=== PATIENT | female | born 1970 | race Caucasian/White ===

== ENCOUNTER 2019-10-19 11:55 | Emergency (ER) | payer MEDICARE ==
[~2019-10-19] VITALS: Ht 165.1 cm; Wt 93.6 kg
[~2019-10-19 11:55] MED LIST: FLEXERIL 1010 MG/TAB PO; NORCO 325 MG-51 TAB PO; OXYTOCIN IJ; PREDNISONE20 MG PO; [UNRECOGNIZED DRUG - OTHER] IJ
[2019-10-19 12:00] VITALS: TEMP 97.6
[2019-10-19 12:34] LABS: BASO # 0.1 (0.0-0.2); BASO % 0.7 % (0.0-2.0); EOS # 0.1 (0.0-0.7); EOS % 1.9 % (0-4.0); GRAN # 4.1 (1.4-6.5); GRAN % 59.6 % (42.2-75.2); HEMATOCRIT 44.1 % (37.0-47.0); HEMOGLOBIN 14.8 g/dl (12.5-16.0); LYMPH # 1.9 (1.2-3.4); LYMPH % 27.3 % (20.0-51.0); MEAN CELL VOLUME 96 fl (80.0-100.0); MEAN CORPUSCULAR HEMOGLOBIN 32 pg (27.0-31.0); MEAN CORPUSCULAR HGB CONC 34 g/dl (33.0-37.0); MEAN PLATELET VOLUME 10.1 fl (7.4-10.4); MONO # 0.7 (0.1-0.6); MONO % 10.1 % (1.7-9.3); PLATELET COUNT 211 K/mm3 (130-400); RED BLOOD COUNT 4.58 M/mm3 (4.10-5.30); REDCELL DISTRIBUTION WIDTH-CV 14.6 % (11.5-14.5)
[2019-10-19 12:43] LABS: PROTHROMBIN TIME 11.1 SECONDS (9.7-12.8)
[2019-10-19 13:16] LABS: ALANINE AMINOTRANSFERASE 413 U/L (4-34); ALBUMIN 4.3 gm/dL (3.5-5.0); ALKALINE PHOSPHATASE 109 U/L (50-136); ANION GAP 11 mmol/L (7-16); AST,SGOT 569 U/L (15-37); BILIRUBIN,TOTAL 1.4 mg/dL (0.0-1.0); BLOOD UREA NITROGEN 8 mg/dL (7-17); CARBON DIOXIDE 24 mmol/L (22-30); CHLORIDE 99 mmol/L (98-107); CREATININE, serum 0.54 (0.52-1.25); GLUCOSE 101 mg/dL (74-106); POTASSIUM 3.8 mmol/L (3.4-5.0); SODIUM 135 mmol/L (137-145); TOTAL PROTEIN 7.7 gm/dL (6.4-8.2)
[2019-10-19 13:37] LABS: TROPONIN-I < 0.012 ng/mL (0.000-0.035)
[2019-10-19 14:03] VITALS: BP 148/98; PULSE 81
[2019-10-20] MEDS ORDERED: ATIVAN 1MG T1 MG/TAB PO ×2 (06:04)
[2019-10-20] MEDS ORDERED: TENUATE PO (07:10)
[2019-10-20] MEDS ORDERED: GLUCOSAMINE 1000 PO (07:11)
[2019-10-20] MEDS ORDERED: LIORESAL20 MG PO (07:11)
[2019-10-20] MEDS ORDERED: MOBIC15 MG PO (07:12)
[2019-10-20] MEDS ORDERED: NORVASC 10MG10 MG PO (07:12)
[2019-10-20] MEDS ORDERED: NEXIUM 40MG40 MG PO (07:13)
[2019-10-20] MEDS ORDERED: NATURAL POTASS595 MG PO (07:14)
== END 2019-10-19 14:29 | disposition home or self-care (01) ==
LOC: COL.ER 11:55
PROVIDERS: Emergency Medicine
DX: S92.901A Unspecified fracture of right foot, initial encounter for closed fracture (principal); H53.9 Unspecified visual disturbance; I10 Essential (primary) hypertension; R42 Dizziness and giddiness; Z90.89 Acquired absence of other organs; W19.XXXA Unspecified fall, initial encounter
CPT/HCPCS: J2060; J7030

== ENCOUNTER 2019-10-20 02:46 | Inpatient (IN) | payer MEDICARE ==
[2019-10-20] VITALS (316 sets, daily range): BP systolic 129–153; BP diastolic 91–102; PULSE 89–133; TEMP 98.7; O2SAT 85–99
[~2019-10-20] VITALS: Ht 165.1 cm; Wt 93.3 kg
[2019-10-20 03:37] LABS: BASO # 0.1 (0.0-0.2); BASO % 0.9 % (0.0-2.0); EOS # 0.2 (0.0-0.7); EOS % 3.1 % (0-4.0); GRAN # 3.5 (1.4-6.5); GRAN % 52.2 % (42.2-75.2); HEMATOCRIT 43.1 % (37.0-47.0); HEMOGLOBIN 14.2 g/dl (12.5-16.0); LYMPH # 2.3 (1.2-3.4); LYMPH % 33.9 % (20.0-51.0); MEAN CELL VOLUME 96 fl (80.0-100.0); MEAN CORPUSCULAR HEMOGLOBIN 32 pg (27.0-31.0); MEAN CORPUSCULAR HGB CONC 33 g/dl (33.0-37.0); MEAN PLATELET VOLUME 10.5 fl (7.4-10.4); MONO # 0.6 (0.1-0.6); MONO % 9.5 % (1.7-9.3); PLATELET COUNT 191 K/mm3 (130-400); RED BLOOD COUNT 4.48 M/mm3 (4.10-5.30); REDCELL DISTRIBUTION WIDTH-CV 14.5 % (11.5-14.5)
[2019-10-20 03:42] LABS: INR 0.9 (0.8-3.0); PROTHROMBIN TIME 9.9 SECONDS (9.7-12.8)
[2019-10-20 03:45] LABS: PARTIAL THROMBOPLASTIN TIME 31.7 SECONDS (26.0-37.0)
[2019-10-20 03:47] LABS: ALANINE AMINOTRANSFERASE 462 U/L (4-34); ALBUMIN 4.5 gm/dL (3.5-5.0); ALCOHOL(ethanol),MEDICAL < 10 mg/dL; ALKALINE PHOSPHATASE 131 U/L (50-136); ANION GAP 8 mmol/L (7-16); AST,SGOT 660 U/L (15-37); BILIRUBIN,TOTAL 1.3 mg/dL (0.0-1.0); BLOOD UREA NITROGEN 10 mg/dL (7-17); CALCIUM 8.9 mg/dL (8.4-10.2); CARBON DIOXIDE 27 mmol/L (22-30); CHLORIDE 101 mmol/L (98-107); CREATININE, serum 0.58 (0.52-1.25); GLUCOSE 101 mg/dL (74-106); POTASSIUM 3.4 mmol/L (3.4-5.0); SODIUM 136 mmol/L (137-145); TOTAL PROTEIN 8.1 gm/dL (6.4-8.2)
[2019-10-20 04:15] LABS: TROPONIN-I < 0.012 ng/mL (0.000-0.035)
[2019-10-20] MEDS ORDERED: ATIVAN 1MG T1 MG/TAB PO ×2 (06:04)
[2019-10-20] MEDS ORDERED: TENUATE PO (07:10)
[2019-10-20] MEDS ORDERED: LIORESAL20 MG PO (07:11)
[2019-10-20] MEDS ORDERED: GLUCOSAMINE 1000 PO (07:11)
[2019-10-20] MEDS ORDERED: NORVASC 10MG10 MG PO (07:12)
[2019-10-20] MEDS ORDERED: MOBIC15 MG PO (07:12)
[2019-10-20] MEDS ORDERED: NEXIUM 40MG40 MG PO (07:13)
[2019-10-20] MEDS ORDERED: NATURAL POTASS595 MG PO (07:14)
--- NOTE | 2019-10-20 13:15 | NUR ---
SW met with the patient to complete intake. The patient lives in [place] with her boyfriend, Tutu Felix (ph#[phone]). She states that she came up to [place] to stay with her parents: Shwetha (ph#[phone]) and Sabas Aquino (ph#[phone]), due to them having a lot of family/friends pass away lately. During intake, the patient appeared to be having hallucinations and would start having conversations with someone else she thought was in the room. The patient states that her PCP is Dr. Deandre Leslie in [place]. She states that she sees Ninfa Thorne, clinical psych social worker in [place] for her mental health. Due to the patient's active hallucinations, SW then contacted the patient's mother, Shwetha. Shwetha reports that the patient has been staying with her and her since Thursday/Thursday. Shwetha states that her and her picked the patient up from [place] then, because the patient wanted to stop drinking. The patient did not want a car up here, because she did not want to be tempted to leave. Shwetha reports that the patient has two children: Karime (ph#[phone]) and Bolivar (ph#[phone]). Karime lives in [place] and will be coming up to [place] tomorrow to see the patient. Bolivar lives in [place]. SW to attempt to contact the patient's daughter and will continue to follow.
[2019-10-20 13:17] LABS: COLLECTION METHOD CLEAN CATCH
[2019-10-20 13:23] LABS: PH 7 (5-8); SQUAMOUS EPITHELIAL 0-2 /hpf; URINE APPEARANCE Clear; URINE BACTERIA None Seen /hpf; URINE BILIRUBIN Negative (NEGATIVE); URINE BLOOD Negative (NEGATIVE); URINE COLOR Straw; URINE GLUCOSE Negative (NEGATIVE); URINE KETONE Negative (NEGATIVE); URINE LEUKOCYTE ESTERASE Negative (NEGATIVE); URINE NITRATE Negative (NEGATIVE); URINE PROTEIN(semi-quant) Negative (NEGATIVE); URINE RBC 0-2 /hpf; URINE UROBILINOGEN Negative (NEGATIVE)
[2019-10-20 13:43] LABS: TRICYCLIC ANTIDEPRESS URINE NEGATIVE
--- NOTE | 2019-10-20 19:10 | NUR ---
RECEIVED REPORT FROM SHILPA ROSS. BEDALARM SET. PT APPEARS CONFSUED BUT IS ABLE TO FOLLOW SIMPLE COMMANDS. SEE GTT FLOWHSEET. VSS. CALL LIGHT WITHIN REACH. PT NEEDS COAXING TO NOT PULL AT IV BUT IS ABLE TO LEAVE IT BE WITH CONSISTENT REORIENTATION.
--- NOTE | 2019-10-20 20:30 | NUR ---
PT APPEARS TO BE RESTLESS AND THINKS HER MOM AND A FRIEND WERE HERE AND LOOKS AROUND. 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 BEDALARM IN PLACE.
[2019-10-21] VITALS (547 sets, daily range): BP systolic 112–139; BP diastolic 85–122; PULSE 64–95; TEMP 98.2–98.6; O2SAT 78–100
[2019-10-21 06:41] LABS: ALBUMIN 3.6 gm/dL (3.5-5.0); BILIRUBIN,TOTAL 0.8 mg/dL (0.0-1.0); CALCIUM 8.4 mg/dL (8.4-10.2); CREATININE, serum 0.55 (0.52-1.25); MAGNESIUM 2.1 mg/dL (1.6-2.3); POTASSIUM 3.8 mmol/L (3.4-5.0); TOTAL PROTEIN 6.7 gm/dL (6.4-8.2)
[2019-10-22] VITALS: BP 143/92; PULSE 70; TEMP 98.7
[2019-10-22 04:00] VITALS: BP 142/96; PULSE 86; TEMP 99
[2019-10-22 05:38] LABS: BASO % 0.7 % (0.0-2.0); EOS # 0.2 (0.0-0.7); EOS % 3.2 % (0-4.0); GRAN # 2.6 (1.4-6.5); GRAN % 48.7 % (42.2-75.2); HEMATOCRIT 38.3 % (37.0-47.0); HEMOGLOBIN 12.6 g/dl (12.5-16.0); LYMPH # 1.9 (1.2-3.4); LYMPH % 34.7 % (20.0-51.0); MEAN CELL VOLUME 99 fl (80.0-100.0); MEAN CORPUSCULAR HEMOGLOBIN 32 pg (27.0-31.0); MEAN CORPUSCULAR HGB CONC 33 g/dl (33.0-37.0); MEAN PLATELET VOLUME 9.4 fl (7.4-10.4); MONO # 0.7 (0.1-0.6); MONO % 12.3 % (1.7-9.3); PLATELET COUNT 182 K/mm3 (130-400); RED BLOOD COUNT 3.89 M/mm3 (4.10-5.30); REDCELL DISTRIBUTION WIDTH-CV 14.6 % (11.5-14.5)
[2019-10-22 05:50] LABS: ALBUMIN 3.7 gm/dL (3.5-5.0); BILIRUBIN,TOTAL 0.7 mg/dL (0.0-1.0); CALCIUM 8.8 mg/dL (8.4-10.2); CREATININE, serum 0.57 (0.52-1.25); PHOSPHOROUS 4.5 mg/dL (2.5-4.5); POTASSIUM 3.6 mmol/L (3.4-5.0); TOTAL PROTEIN 6.8 gm/dL (6.4-8.2)
--- NOTE | 2019-10-22 07:15 | NUR ---
Report received from Letty MASSEY. Pt resting in bed at this time. Reports pain 8/10. Will continue to attempt to get pain medication order.
--- NOTE | 2019-10-22 07:40 | NUR ---
Pt resting in bed. Pleasant and cooperative with assessment. Breakfast tray provided at bedside. Attempts made to palpate right dorasalis pedis pulse although due to pain pt requested attempts cease. Cap refill WNL <3. No significant discoloration to exposed toes.
[2019-10-22 08:00] VITALS: BP 120/74; PULSE 85; TEMP 98.3
[2019-10-22 08:18] VITALS: O2SAT 99
[2019-10-22] MEDS ORDERED: FOLIC ACID 11 MG/TA1 PO (11:55)
[2019-10-22] MEDS ORDERED: NATURE'S BLEND100 M2 PO (11:56)
[2019-10-22] MEDS ORDERED: ONCE DAILY1 TA1 PO (11:56)
[2019-10-22] MEDS ORDERED: ROXICODONE 55 MG/TAB PO (11:57)
[2019-10-22] MEDS ORDERED: DESYREL 50MG50 MG PO (11:59)
[2019-10-22 12:00] VITALS: BP 135/91; PULSE 87
--- NOTE | 2019-10-22 12:40 | NUR ---
Discharge information, prescriptions, educational packs provided to patient. IV discontinued. Pt denies any questions or concerns at this time. Mother will arrive around 1400 for pickler helper.
--- NOTE | 2019-10-22 13:55 | NUR ---
Patient assisted out of facility to vehicle via wheelchair. Personal belongings obtained per pt.
[2019-10-22 14:19] VITALS: O2SAT 96
== END 2019-10-22 14:00 | disposition home or self-care (01) | DRG 897 ==
LOC: COL.ER 02:46 → IMCU 07:37 → ICU 14:29 → IMCU 16:45
PROVIDERS: Emergency Medicine; Family Medicine; Physician Assistant; ADMIT Internal Medicine
DX: F10.14 Alcohol abuse with alcohol-induced mood disorder (principal); F10.180 Alcohol abuse with alcohol-induced anxiety disorder; F31.9 Bipolar disorder, unspecified; I10 Essential (primary) hypertension; K70.10 Alcoholic hepatitis without ascites; G47.00 Insomnia, unspecified
CPT/HCPCS: 99223-AI; 99233-AI; 99239; J1630; J1650; J2060; J3411; J3475; J7030

== ENCOUNTER 2021-10-05 15:00 | Emergency (ER) | payer MEDICARE ==
[~2021-10-05] VITALS: Ht 165.1 cm; Wt 82.3 kg
[~2021-10-05 15:00] MED LIST changes: +ATIVAN 1MG T1 MG/TAB PO; +DESYREL 50MG50 MG PO; +FOLIC ACID 11 MG/TA1 PO; +GLUCOSAMINE 1000 PO; +LIORESAL20 MG PO; +MOBIC15 MG PO; +NATURAL POTASS595 MG PO; +NATURE'S BLEND100 M2 PO; +NEXIUM 40MG40 MG PO; +NORVASC 10MG10 MG PO; +ONCE DAILY1 TA1 PO; +ROXICODONE 55 MG/TAB PO; +TENUATE PO
[2021-10-05 15:10] VITALS: TEMP 98.1
[2021-10-05 15:36] LABS: COLLECTION METHOD CLEAN CATCH
[2021-10-05 15:39] LABS: HEMATOCRIT 40.1 % (37.0-47.0); HEMOGLOBIN 13.3 g/dl (12.5-16.0); MEAN CELL VOLUME 89 fl (80.0-100.0); MEAN CORPUSCULAR HEMOGLOBIN 30 pg (27-31); MEAN CORPUSCULAR HGB CONC 33 g/dl (33.0-37.0); MEAN PLATELET VOLUME 8.8 fl (7.4-10.4); PLATELET COUNT 512 K/mm3 (130-400); REDCELL DISTRIBUTION WIDTH-CV 14.7 % (11.5-14.5)
[2021-10-05 15:43] LABS: MUCOUS Present (NOT PRESENT); PH 6 (5-8); SQUAMOUS EPITHELIAL 0-2 /hpf (0-10); URINE APPEARANCE Clear (CLEAR/HAZY); URINE BACTERIA Rare /hpf (NONE SEEN); URINE BLOOD Negative (NEGATIVE); URINE COLOR Straw (YELLOW); URINE GLUCOSE Negative (NEGATIVE); URINE KETONE Negative (NEGATIVE); URINE NITRATE Negative (NEGATIVE); URINE PROTEIN(semi-quant) Negative (NEGATIVE); URINE RBC 0-2 /hpf (0-2); URINE UROBILINOGEN Negative (NEGATIVE)
[2021-10-05 15:59] LABS: BILIRUBIN,TOTAL 0.4 mg/dL (0.2-1.2); CREATININE, serum 0.68 mg/dL (0.57-1.11); POTASSIUM 3.6 mmol/L (3.5-4.5); TOTAL PROTEIN 6.7 gm/dL (6.2-8.1)
[2021-10-05 16:04] LABS: ALBUMIN 2.7 gm/dL (3.5-5.0)
[2021-10-05 16:05] LABS: BAND 23 % (0-10); CALCIUM 8.8 mg/dL (8.4-10.2); EOSINOPHIL 3 % (0-4); LYMPHOCYTE 18 % (20.0-51.0); MYELOCYTE 1 % (0-0); NEUTROPHILS 48 % (42.0-75.2); PLATELET ESTIMATE INCREASED (NORMAL)
[2021-10-05 16:41] LABS: TRICYCLIC ANTIDEPRESS URINE NEGATIVE
[2021-10-05 17:44] VITALS: BP 144/79; PULSE 95
== END 2021-10-05 17:51 | disposition home or self-care (01) ==
LOC: COL.ER 15:00
PROVIDERS: Family Medicine
DX: K52.9 Noninfective gastroenteritis and colitis, unspecified (principal); Z98.84 Bariatric surgery status; Z20.822 Contact with and (suspected) exposure to COVID-19
CPT/HCPCS: J1790; J2405; J7120